=== PATIENT | male | born 1950 | race Caucasian/White ===

== ENCOUNTER 2024-11-04 10:07 | Day surgery (SDC) | payer MEDICARE, BC ==
[~2024-11-04] VITALS: Ht 167.6 cm; Wt 103.4 kg
[~2024-11-04 10:07] MED LIST: ALBU90OI INH; AMLO5 PO; ASPI81CH PO; ATOR40TA PO; BUDE6HFA INH; Balanced Salt Epinephrine Irrigation Solution 500 mL IR SCH; DYMISTA NASAL S23 GM NS; EFFIENT5 MG PO; HYDACE10B PO; HYDCHL25 PO; IBUP400 PO; JALYN 0.5-0.41 EACH PO; LEVSOD75 PO; Lidocaine HCl/Pf 1% 5 ML VIAL XX SCH; METO25 PO; MONT10T PO; Moxifloxacin HCL 0.5 MG/0.1 ML 0.4MLSYR RIGHTEYE SCH; NICO21TP TOP; NITR.4SL SL; NUCYNTA ER150 MG PO; NUVIGIL250 MG PO; PANT40 PO; PHENYLEPHRINE\\TROPICAMIDE\\TETRACAINE OPHTHALMIC DILATING SOLN RIGHTEYE PRN; Percocet 5-3251 EACH PO; Povidone-Iodine 450 DROP/30 ML Solution ONE; Povidone-Iodine 450 DROP/30 ML Solution RIGHTEYE SCH; SILD50TA PO; TIOT18 INH; Tetracaine HCl/Pf 0.5% Opth Soln 4 ml ONE
[2024-11-04] MEDS ORDERED: FentaNYL Citrate 50 MCG/ML 2 ML Injection ONE (10:25)
[2024-11-04] MEDS ORDERED: Midazolam HCl 1MG / ML 2ML Vial ONE (10:26)
[2024-11-04] MEDS ORDERED: METF500 PO (10:33)
[2024-11-04] MEDS ORDERED: BUPROPION XL150 M1 PO (10:33)
[2024-11-04] MEDS ORDERED: FENOFIBRATE145 MG PO (10:34)
[2024-11-04] MEDS ORDERED: FUROSEMIDE20 MG PO (10:34)
--- NOTE | 2024-11-04 10:47 | NUR ---
11/04/24 1047 Karissa Garza IN RIGHT EYE AT 1029 AND OSBALDO IN AT 1033. CALL LIGHT WITHIN REACH. FAMILY AT BEDSIDE. PT VERY HARD OF HEARING
--- NOTE | 2024-11-04 11:26 | NUR ---
11/04/24 1126 Tiffanie Dong BROUGHT TO BEDSIDE
[2024-11-04 11:27] VITALS: BP 157/68
== END 2024-11-04 11:50 | disposition home or self-care (01) ==
LOC: ORSCSDS 10:07
PROVIDERS: Student in an Organized Health Care Education/Training Program
PROC: 08RJ3JZ Replacement of Right Lens with Synthetic Substitute, Percutaneous Approach (ICD-10-PCS; principal; 2024-11-04 11:30)
DX: E11.36 Type 2 diabetes mellitus with diabetic cataract (principal); H25.813 Combined forms of age-related cataract, bilateral; I10 Essential (primary) hypertension; J44.9 Chronic obstructive pulmonary disease, unspecified; G47.33 Obstructive sleep apnea (adult) (pediatric); E78.00 Pure hypercholesterolemia, unspecified; R06.02 Shortness of breath; F17.210 Nicotine dependence, cigarettes, uncomplicated; Z79.82 Long term (current) use of aspirin; Z79.84 Long term (current) use of oral hypoglycemic drugs; Z79.899 Other long term (current) drug therapy
CPT/HCPCS: 82947; J2250; J3010; V2632